=== PATIENT | male | born 1970 | race African-American/Black ===

== ENCOUNTER 2017-11-07 03:09 | Emergency (ER) | payer BC ==
[2017-11-07] MEDS: KETOROLAC 60 MG/2 ML INJ. IM (04:04)
== END 2017-11-07 04:25 | disposition home or self-care (01) ==
LOC: ER 03:09
DX: S02.5XXA Fracture of tooth (traumatic), initial encounter for closed fracture (principal); K04.01 Reversible pulpitis; K04.7 Periapical abscess without sinus; F12.10 Cannabis abuse, uncomplicated; X58.XXXA Exposure to other specified factors, initial encounter; Y93.89 Activity, other specified; Y92.89 Other specified places as the place of occurrence of the external cause; Y99.8 Other external cause status
CPT/HCPCS: 96372; 99283; J1885

== ENCOUNTER 2018-07-10 01:25 | Emergency (ER) | payer SELFPAY ==
[~2018-07-10] VITALS: Ht 177.8 cm; Wt 72.6 kg
[~2018-07-10 01:25] MED LIST: AMOX1TAB61 PO; CEPH-264 PO; CHLO15MO2 PO; IBUP-1060 PO; NAPR-514 PO
[2018-07-10 01:39] VITALS: BP 154/89
[2018-07-10] MEDS ORDERED: CLIN150C14 PO (01:55)
[2018-07-10] MEDS ORDERED: DIFL500T PO (01:55)
--- NOTE | 2018-07-10 01:55 | PHYS DOC ---
Past Medical History Past Medical History: No Pertinent History Past Surgical History: No Surgical History Alcohol Use: None Drug Use: Marijuana Adult General Chief Complaint Chief Complaint: DENTAL PROBLEM HPI HPI Patient is a 48 year old male who presents with dental pain. This has been an ongoing issue for approximately 2 years as a filling broke. He reports that he is getting insurance and will be seeing a dentist next month. Was seen approximately a week ago for a worsening of this, was placed on antibiotics, and has not noticed any improvement. Patient applied [id number] temporary filling compound which slightly improved the discomfort initially but now the pain is worse than ever. There is some cold sensitivity. No fevers. No relief with [id number] pain medicine. No difficulty swallowing.[] Review of Systems Review of Systems Constitutional: Denies fever or chills [] Eyes: Denies change in visual acuity, redness, or eye pain [] HENT: Denies nasal congestion or sore throat [] Respiratory: Denies cough or shortness of breath [] Cardiovascular: No chest pain or palpitations[] GI: Denies abdominal pain, nausea, vomiting, bloody stools or diarrhea [] : Denies dysuria or hematuria [] Musculoskeletal: Denies back pain or joint pain [] Integument: Denies rash or skin lesions [] Neurologic: Denies headache, focal weakness or sensory changes [] Endocrine: Denies polyuria or polydipsia [] All other systems were reviewed and found to be within normal limits, except as documented in this note. Allergies Allergies Allergies Coded Allergies Type Severity Reaction Last Updated Verified No Known Drug Allergies 05/12/17 No Physical Exam Physical Exam Constitutional: Well developed, well nourished, no acute distress, non-toxic appearance. [] HENT: Normocephalic, atraumatic, bilateral external ears normal, oropharynx moist, no oral exudates, nose normal. Right posterior tooth, #31, temporary filling compound noted at the anterior lingual surface. There is tenderness to percussion of the tooth. There is no drainable abscess appreciated.[] Eyes: PERRLA, EOMI, conjunctiva normal, no discharge. [] Neck: Normal range of motion, no tenderness, supple, no stridor. [] Cardiovascular:Heart rate regular rhythm, no murmur [] Lungs & Thorax: Bilateral breath sounds clear to auscultation [] Abdomen: Not examined. [] Skin: Warm, dry, no erythema, no rash. [] Back: No tenderness, no CVA tenderness. [] Extremities: No tenderness, no cyanosis, no clubbing, ROM intact, no edema. [] Neurologic: Alert and oriented X 3, normal motor function, normal sensory function, no focal deficits noted. [] Psychologic: Affect normal, judgement normal, mood normal. [] Current Patient Data Vital Signs Vital Signs Date Time Temp Pulse Resp B/P (MAP) Pulse Ox O2 Delivery O2 Flow Rate FiO2 07/10/18 01:39 98.4 64 18 154/89 (110) 100 Room Air 98.4 EKG EKG [] Radiology/Procedures Radiology/Procedures [] Course & Med Decision Making Course & Med Decision Making Pertinent Labs and Imaging studies reviewed. (See chart for details) Medical decision making: There is no evidence of an Pierce fracture, no evidence of systemic toxicity.[] Dragon Disclaimer Dragon Disclaimer This electronic medical record was generated, in whole or in part, using a voice recognition dictation system. Departure Departure Impression: Primary Impression: Dental abscess Disposition: HOME, SELF-CARE Referrals: NO PCP (PCP) Patient Instructions: Dental Abscess Additional Instructions: Follow-up with your regular doctor and dentist in 2 days. If you do not have one , a list of local low-cost clinics will be provided for you. Take the medication as prescribed. Return to the ER if worsening pain, difficulty swallowing, or any other concerns. Scripts Diflunisal (DIFLUNISAL) 500 Mg Tablet 500 MG PO BID, #20 TAB Prov: RAVINDER GIBSON DO 07/10/18 Clindamycin Hcl (CLINDAMYCIN HCL) 150 Mg Capsule 300 MG PO QID, #80 CAP Prov: RAVINDER GIBSON DO 07/10/18 RAVINDER GIBSON DO Jul 10, 2018 01:55
[2018-07-10] MEDS ORDERED: CLINDAMYCIN HCL 150 MG CAPSULE. PO ONE (02:15)
[2018-07-10] MEDS ORDERED: KETOROLAC 15 MG/ML VIAL. IM ONE (02:15)
== END 2018-07-10 02:04 | disposition home or self-care (01) ==
LOC: ER 01:25
DX: K04.7 Periapical abscess without sinus (principal)
CPT/HCPCS: 96372; 99283; J1885

== ENCOUNTER 2019-08-09 04:34 | Emergency (ER) | payer SELFPAY ==
[~2019-08-09] VITALS: Ht 180.3 cm; Wt 7.5 kg
[~2019-08-09 04:34] MED LIST changes: +CLIN150C14 PO; +DIFL500T PO
[2019-08-09 04:55] VITALS: BP 134/90
--- NOTE | 2019-08-09 05:14 | PHYS DOC ---
Past Medical History Past Medical History: No Pertinent History Past Surgical History: No Surgical History Alcohol Use: None Drug Use: Marijuana Adult General Chief Complaint Chief Complaint: DENTAL PROBLEM HPI HPI 49-year-old male presents to the emergency Department complaints of toothache. Patient states he lost his filling in his tooth number 17 a few weeks ago. Tonight describes increased pain. Patient denies fever. Patient states currently insurance is not enrolled. Nothing makes pain worse, nothing makes pain better. Patient states he has taken over the counter medications without relief. All other ROS negative unless documented in HPI Review of Systems Review of Systems See Above Current Medications Current Medications Current Medications Medications (Trade) Dose Ordered Sig/Moses Start Time Stop Time Status Last Admin Dose Admin Bupivacaine HCl (Sensorcaine Mpf 0.5%) 30 ml 1X ONCE 08/09/19 05:15 08/09/19 05:16 DC 08/09/19 05:21 30 ML Ketorolac Tromethamine (Toradol Im) 60 mg 1X ONCE 08/09/19 05:15 08/09/19 05:16 DC 08/09/19 05:22 60 MG Lidocaine HCl (Xylocaine 1% Pf 30ml Vial) 30 ml 1X ONCE 08/09/19 05:15 08/09/19 05:16 DC 08/09/19 05:21 30 ML Allergies Allergies Allergies Coded Allergies Type Severity Reaction Last Updated Verified No Known Drug Allergies 05/12/17 No Physical Exam Physical Exam See Above Constitutional: Well developed, well nourished, no acute distress, non-toxic appearance. [] HENT: Normocephalic, atraumatic, bilateral external ears normal, oropharynx moist, no oral exudates, nose normal, tooth number 17 with missing filling, gums are not irritated on exam, no evidence of infection appreciated [] Eyes: PERRLA, EOMI, conjunctiva normal, no discharge. [] Neck: Normal range of motion, no tenderness, supple, no stridor. [] Cardiovascular:Heart rate regular rhythm, no murmur [] Lungs & Thorax: Bilateral breath sounds clear to auscultation [] Neurologic: Alert and oriented X 3, no focal deficits noted. [] Psychologic: Affect normal, judgement normal, mood normal. [] Current Patient Data Vital Signs Vital Signs Date Time Temp Pulse Resp B/P (MAP) Pulse Ox O2 Delivery O2 Flow Rate FiO2 08/09/19 04:55 97.9 60 18 134/90 (105) 99 Room Air 97.9 EKG EKG [] Radiology/Procedures Radiology/Procedures [] Course & Med Decision Making Course & Med Decision Making Pertinent Labs and Imaging studies reviewed. (See chart for details) []49-year-old male presents to the emergency Department complaints of toothache. Patient states he lost his filling in his tooth number 17 a few weeks ago. Tonight describes increased pain. Patient denies fever. Patient states currently insurance is not enrolled. Nothing makes pain worse, nothing makes pain better. Patient states he has taken over the counter medications without relief. Bupivicaine 1cc/Lidocaine 1 cc injected to the inferior alveolar nerve Toradol 60mg IM x 1 Patient with improved pain Doxycycline 100mg po BID x 10 days Follow up with dentist as scheduled Grant Disclaimer Dragon Disclaimer This electronic medical record was generated, in whole or in part, using a voice recognition dictation system. Departure Departure Impression: Primary Impression: Dental caries Disposition: HOME, SELF-CARE Condition: STABLE Referrals: NO PCP (PCP) Patient Instructions: Dental Caries Additional Instructions: Recommend follow up with PCP 3 - 5 days Return to the ER with worsening symptoms, intractable pain, fever, altered mental status Tylenol/Motrin as needed for pain Dental block provided in ER Scripts Doxycycline Hyclate (DOXYCYCLINE HYCLATE) 100 Mg Capsule 1 CAP PO BID, #14 CAP Prov: MICHAEL BURDEN MD 08/09/19 MICHAEL BURDEN MD Aug 09, 2019 05:14
[2019-08-09] MEDS: BUPIVACAINE MPF 0.5% 30 ML VIAL. INJ ONE (05:21)
[2019-08-09] MEDS: LIDOCAINE 1% PF 30 ML VIAL. INJ ONE (05:21)
[2019-08-09] MEDS: KETOROLAC 60 MG/2 ML VIAL. IM ONE (05:22)
[2019-08-09] MEDS ORDERED: DOXY100C2 PO (05:37)
== END 2019-08-09 05:50 | disposition home or self-care (01) ==
LOC: ER 04:34
DX: K02.9 Dental caries, unspecified (principal); K08.89 Other specified disorders of teeth and supporting structures; F12.90 Cannabis use, unspecified, uncomplicated
CPT/HCPCS: 64400; 96372; 99284; J1885; J3490